=== PATIENT | female | born 1945 | race Caucasian/White ===

== ENCOUNTER 2020-04-16 06:48 | Emergency (ER) | payer MEDICARE, OTHER ==
[2020-04-16 07:45] LABS: BASOPHIL 0.4 % (0-2); EOSINOPHIL 2.1 % (0-7); LYMPHOCYTE 23.6 % (15-48); MCH 27.4 pg (25.0-31.0); MCHC 31.6 g/dL (32.0-36.0); MCV 86.8 fL (78.0-100.0); MONOCYTE 6.4 % (0-12); MPV 9.7 fL (6.0-9.5); NEUTROPHIL 67.4 % (41-80); NRBC 0; PLT 263 K/uL (150-400); RBC 4.38 M/uL (4.20-5.40); RDW 14.1 % (11.5-14.0); WBC 7.9 K/uL (4.0-10.5)
[2020-04-16 07:57] LABS: INR 1.06 (0.9-1.2); PROTHROMBIN TIME 13.1 SECONDS (11.4-13.6); PTT 25.9 SECONDS (22.2-34.7)
[2020-04-16 07:58] LABS: D-DIMER < 0.27 ug/mLFEU (0.00-0.41)
[2020-04-16 08:06] LABS: ALBUMIN 3.2 g/dL (3.4-5.0); BILIRUBIN - TOTAL 0.3 mg/dL (0.2-1.0); BUN/CREAT RATIO (CALC) 25.4 RATIO; C-REACTIVE PROTEIN 0.6 mg/dL (<=0.90); CREATININE 0.71 mg/dL (0.51-0.95); GLOBULIN (CALCULATION) 3.7 g/dL; TOTAL PROTEIN 6.9 g/dL (6.4-8.2)
[2020-04-16] MEDS ORDERED: MOBIC7.5 M1 PO (09:07)
[2020-04-16] MEDS ORDERED: NEURONTIN100 MG PO (09:07)
== END 2020-04-16 09:51 | disposition home or self-care (01) ==
LOC: FER 06:48
PROVIDERS: Emergency Medicine
DX: M17.12 Unilateral primary osteoarthritis, left knee (principal); G57.22 Lesion of femoral nerve, left lower limb; Z88.2 Allergy status to sulfonamides
CPT/HCPCS: 36415; 73560; 80053; 85025; 85379; 85610; 85730; 86140; 96374; 96375; J1170; J2405

== ENCOUNTER 2021-02-14 20:44 | Emergency (ER) | payer MEDICARE, OTHER ==
[~2021-02-14 20:44] MED LIST: MOBIC7.5 M1 PO; NEURONTIN100 MG PO
[2021-02-14 21:19] LABS: BASOPHIL 0.2 % (0-2); EOSINOPHIL 0.4 % (0-7); HCT 37.2 % (37.0-47.0); HGB 11.9 g/dl (12.5-16.0); LYMPHOCYTE 6.2 % (15-48); MCH 26.3 pg (25.0-31.0); MCV 82.1 fL (78.0-100.0); MONOCYTE 5.8 % (0-12); MPV 9.4 fL (6.0-9.5); NRBC 0; PLT 273 K/uL (150-400); RBC 4.53 M/uL (4.20-5.40); RDW 15.4 % (11.5-14.0); WBC 12.7 K/uL (4.0-10.5)
[2021-02-14 21:40] LABS: BUN/CREAT RATIO (CALC) 16.9 RATIO; CREATININE 0.83 mg/dL (0.51-0.95); POTASSIUM 3.9 mmol/L (3.5-5.1)
[2021-02-14 21:54] LABS: CORONAVIRUS 2019 SARS-COV-2 NEGATIVE (NEGATIVE); INFLUENZA A NAA NEGATIVE (NEGATIVE)
[2021-02-14 23:37] LABS: BILIRUBIN NEGATIVE (NEGATIVE); BLOOD NEGATIVE Ery/uL (NEGATIVE); CLARITY CLEAR (CLEAR); COLOR YELLOW (YELLOW); GLUCOSE (U) NORMAL (NORMAL); LEUKOCYTES NEGATIVE Leu/uL (NEGATIVE); NITRITE POSITIVE (NEGATIVE); PROTEIN TRACE (LOW) mg/dL (NEGATIVE); SPECIFIC GRAVITY 1.025 (1.001-1.030); UROBILINOGEN 0.2 mg/dL (0.2-1.0); pH 5.5 (5.0-9.0)
[2021-02-14 23:43] LABS: AMORPHOUS URATES CRYSTALS MODERATE; BACTERIA 3+; SQUAMOUS EPITHELIAL CELLS RARE
[2021-02-15] MEDS ORDERED: MACROBID100 MG PO (00:01)
== END 2021-02-15 00:33 | disposition home or self-care (01) ==
LOC: FER 20:44
PROVIDERS: Nurse Practitioner Family
DX: R53.1 Weakness (principal); N39.0 Urinary tract infection, site not specified; E11.9 Type 2 diabetes mellitus without complications; Z88.2 Allergy status to sulfonamides; Z79.84 Long term (current) use of oral hypoglycemic drugs; Z20.822 Contact with and (suspected) exposure to COVID-19
CPT/HCPCS: 36415; 71045; 80048; 81001; 84484; 85025; 87076; 87088; 87186; 93005; U0002